=== PATIENT | male | born 1945 ===

== ENCOUNTER 2019-05-20 12:30 | Emergency (ER) | payer MEDICARE, OTHER ==
[2019-05-20] MEDS ORDERED: Heparin Sodium 5,000 Units/ML Vial ONE ×2 (12:53→13:07)
[2019-05-20] MEDS ORDERED: Sodium Chloride 0.9% 10 ML Syringe ONE ×2 (12:53)
[2019-05-20] MEDS ORDERED: Ondansetron 4 MG/2 ML SDV ONE ×2 (12:53→13:06)
[2019-05-20] MEDS ORDERED: Nitroglycerin/D5W (0.1 MG/ML) 25 MG/250 ML Bottle ONE (12:53)
[2019-05-20] MEDS ORDERED: Heparin Sodium/D5W 25,000 UNITS/500 ML BAG IV SCH (13:15)
[2019-05-20 13:37] LABS: CHLORIDE,CL 103 mmol/L (98-107); SODIUM,NA 138 mmol/L (136-145)
--- NOTE | 2019-05-20 13:51 | EDM.PDOC ---
ED HPI GENERAL MEDICAL PROBLEM - General Chief Complaint: Chest Pain Stated Complaint: chest pain Time Seen by Provider: 05/20/19 12:40 Source of Information: Reports: Patient History Limitations: Reports: No Limitations - History of Present Illness INITIAL COMMENTS - FREE TEXT/NARRATIVE: Pt with acute onset left chest pain at 1000. Pain was 8/10 Pt called ambulance EMS reported STEMI en route Pt given NTG X 3 and ASA 324 mg in ambulance Also given Fentanyl 100 mcgm Pt states pain now 3/10 No previous hx/o CAD but strong family hx/o CAD and MA Pt also recently treated with radiation for prostate CA Onset: Today, Sudden Duration: Hour(s):, Heavy Location: Reports: Chest - Related Data Allergies Allergy/AdvReac Type Severity Reaction Status Date / Time No Known Allergies Allergy Verified 05/20/19 12:32 ED ROS GENERAL - Review of Systems Review Of Systems: See Below HEENT: Reports: No Symptoms Respiratory: Reports: No Symptoms Cardiovascular: Reports: Chest Pain GI/Abdominal: Reports: No Symptoms Musculoskeletal: Reports: No Symptoms Skin: Reports: No Symptoms ED EXAM, GENERAL - Physical Exam Exam: See Below Exam Limited By: No Limitations General Appearance: Alert, WD/WN, Moderate Distress Nose: Normal Inspection Throat/Mouth: Normal Oropharynx Neck: Supple Respiratory/Chest: Lungs Clear Cardiovascular: Regular Rate, Rhythm GI/Abdominal: Non-Tender Extremities: No Pedal Edema Neurological: Alert, Oriented, No Motor/Sensory Deficits Skin Exam: Warm, Dry EKG INTERPRETATION ST-T: Elevated (STEMI) Course - Orders/Labs/Meds Orders: Active Orders 24 hr Category Date Time Status EKG Documentation Completion [RC] ASDIRECTED Care 05/20/19 12:42 Active Chest 1V Frontal [CR] Stat Exams 05/20/19 12:44 Taken Heparin Sodium/D5W [Heparin 25,000 Units in D5W 500 ML] Med 05/20/19 13:15 Active 25,000 units in 500 ml IV TITRATE Medication Orders Heparin Sodium/Dextrose (Heparin 25,000 Units In D5w 500 Ml) 25,000 units in 500 mls @ 20 mls/hr IV TITRATE JUNO; Protocol Labs: Laboratory Tests 05/20/19 05/20/19 05/20/19 Range/Units 12:45 12:45 12:45 WBC 15.2 H (4.0-10.2) K/uL RBC 4.69 (4.33-5.41) M/uL Hgb 14.3 (13.1-16.8) g/dL Hct 41.5 (39.0-49.0) % MCV 88.5 (84.0-98.0) fL MCH 30.5 (28.2-33.3) pg MCHC 34.5 (31.7-36.0) g/dL RDW 12.8 (11.2-14.1) % Plt Count 168 (150-350) K/uL Neut % (Auto) 84.6 H (45.0-80.0) % Lymph % (Auto) 8.8 L (10.0-50.0) % [place] % (Auto) 5.9 (2.0-14.0) % Eos % (Auto) 0.4 (0.0-5.0) % Baso % (Auto) 0.3 (0.0-2.0) % Neut # (Auto) 12.86 H (1.40-7.00) K/uL Lymph # (Auto) 1.34 (0.50-3.50) K/uL [place] # (Auto) 0.90 (0.00-1.00) K/uL Eos # (Auto) 0.06 (0.00-0.50) K/uL Baso # (Auto) 0.04 (0.00-0.20) K/uL PT 11.2 (9.5-12.0) SEC INR 1.0 APTT 22.6 (21.0-31.3) SEC D-Dimer, Quantitative 138 (0-400) ng/mL Sodium (136-145) mmol/L Potassium (3.5-5.1) mmol/L Chloride (98-107) mmol/L Carbon Dioxide (21.0-32.0) mmol/L BUN (7-18) mg/dL Creatinine (0.51-1.17) mg/dL Est Cr Clr Drug Dosing Estimated GFR (MDRD) mL/min Glucose (74-106) mg/dL Lactic Acid (0.4-2.0) mmol/L Calcium (8.5-10.1) mg/dL Magnesium (1.8-2.4) mg/dL Total Bilirubin (0.2-1.0) mg/dL AST (15-37) U/L ALT (12-78) U/L Alkaline Phosphatase (46-116) IU/L Creatine Kinase (26-308) U/L Creatine Kinase Index (0.0-2.5) % CK-MB (CK-2) (0.00-3.60) ng/mL Troponin I (0.000-0.056) ng/mL NT-Pro-B Natriuret Pep (0-125) pg/mL Total Protein (6.4-8.2) g/dL Albumin (3.4-5.0) g/dL TSH, Ultra Sensitive (0.358-3.740) mIU/mL 05/20/19 05/20/19 Range/Units 12:45 12:45 WBC (4.0-10.2) K/uL RBC (4.33-5.41) M/uL Hgb (13.1-16.8) g/dL Hct (39.0-49.0) % MCV (84.0-98.0) fL MCH (28.2-33.3) pg MCHC (31.7-36.0) g/dL RDW (11.2-14.1) % Plt Count (150-350) K/uL Neut % (Auto) (45.0-80.0) % Lymph % (Auto) (10.0-50.0) % [place] % (Auto) (2.0-14.0) % Eos % (Auto) (0.0-5.0) % Baso % (Auto) (0.0-2.0) % Neut # (Auto) (1.40-7.00) K/uL Lymph # (Auto) (0.50-3.50) K/uL [place] # (Auto) (0.00-1.00) K/uL Eos # (Auto) (0.00-0.50) K/uL Baso # (Auto) (0.00-0.20) K/uL PT (9.5-12.0) SEC INR APTT (21.0-31.3) SEC D-Dimer, Quantitative (0-400) ng/mL Sodium 138 (136-145) mmol/L Potassium 4.9 (3.5-5.1) mmol/L Chloride 103 (98-107) mmol/L Carbon Dioxide 21.4 (21.0-32.0) mmol/L BUN 22 H (7-18) mg/dL Creatinine 1.12 (0.51-1.17) mg/dL Est Cr Clr Drug Dosing TNP Estimated GFR (MDRD) > 60 mL/min Glucose 199 H (74-106) mg/dL Lactic Acid 4.3 H (0.4-2.0) mmol/L Calcium 9.2 (8.5-10.1) mg/dL Magnesium 1.9 (1.8-2.4) mg/dL Total Bilirubin 0.9 (0.2-1.0) mg/dL AST 19 (15-37) U/L ALT 28 (12-78) U/L Alkaline Phosphatase 61 (46-116) IU/L Creatine Kinase 84 (26-308) U/L Creatine Kinase Index 1.9 (0.0-2.5) % CK-MB (CK-2) 1.60 (0.00-3.60) ng/mL Troponin I 0.047 (0.000-0.056) ng/mL NT-Pro-B Natriuret Pep 36 (0-125) pg/mL Total Protein 6.8 (6.4-8.2) g/dL Albumin 3.8 (3.4-5.0) g/dL TSH, Ultra Sensitive 2.136 (0.358-3.740) mIU/mL Meds: Medications Generic Name Dose Route Start Last Admin Trade Name Freq PRN Reason Stop Dose Admin Heparin Sodium/Dextrose 25,000 units in 500 mls @ 20 mls/hr 05/20/19 13:15 Heparin 25,000 Units In D5w 500 Ml IV TITRATE JUNO Protocol 1,000 UNITS/HR Discontinued Medications Generic Name Dose Route Start Last Admin Trade Name Freq PRN Reason Stop Dose Admin Heparin Sodium (Porcine) Confirm 05/20/19 13:07 Heparin Sodium Administered 05/20/19 13:08 Dose 5,000 units .ROUTE .STK-MED ONE Morphine Sulfate Confirm 05/20/19 13:05 Morphine Administered 05/20/19 13:06 Dose 4 mg .ROUTE .STK-MED ONE Ondansetron HCl Confirm 05/20/19 13:06 Zofran Administered 05/20/19 13:07 Dose 4 mg .ROUTE .STK-MED ONE - Re-Assessments/Exams Free Text/Narrative Re-Assessment/Exam: 05/20/19 13:50 D/W Dr Oakley On-call [facility] Pt given Heparin bolus 4000 units and drip 1000 units/hr See lab, CXR and EKG Will accept in transfer Transfer via Life flight Departure - Departure Time of Disposition: 14:00 Disposition: DC/Tfer to Acute Hospital 02 Reason for Transfer *Q: Primary PCI Indicated Clinical Impression: STEMI (ST elevation myocardial infarction) Qualifiers: Involved coronary artery: unspecified coronary artery Qualified Code(s): I21.3 - ST elevation (STEMI) myocardial infarction of unspecified site Referrals: PCP,Unknown [Primary Care Provider] - - My Orders Last 24 Hours: My Active Orders 05/20/19 12:42 EKG Documentation Completion [RC] ASDIRECTED 05/20/19 12:44 Chest 1V Frontal [CR] Stat 05/20/19 13:15 Heparin Sodium/D5W [Heparin 25,000 Units in D5W 500 ML] 25,000 units in 500 ml IV TITRATE - Assessment/Plan Last 24 Hours: My Active Orders 05/20/19 12:42 EKG Documentation Completion [RC] ASDIRECTED 05/20/19 12:44 Chest 1V Frontal [CR] Stat 05/20/19 13:15 Heparin Sodium/D5W [Heparin 25,000 Units in D5W 500 ML] 25,000 units in 500 ml IV TITRATE
== END 2019-05-20 14:43 ==
LOC: LL.ED 12:30
DX: I21.3 ST elevation (STEMI) myocardial infarction of unspecified site (principal)
CPT/HCPCS: 36415; 71045; 80053; 82550; 82553; 83605; 83735; 83880; 84443; 84484; 85025; 85379; 85610; 85730; 93005; 96365; 96366; 96368; 96375; 96376; 99285; J1644; J2270; J2405; J3490